=== PATIENT | male | born 1970 | race Caucasian/White ===

== ENCOUNTER 2017-01-01 11:40 | Outpatient (CLI) ==
[2017-01-01 12:39] LABS: FLU INTERNAL QC INTERNAL QC VALID; RAPID FLU A NEGATIVE (NEGATIVE); RAPID FLU B NEGATIVE (NEGATIVE)
== END 2017-01-01 11:41 | disposition home or self-care (01) ==
LOC: LAB 11:40
PROVIDERS: ATTEND Nurse Practitioner Family
DX: J02.9 Acute pharyngitis, unspecified (principal); R52 Pain, unspecified
CPT/HCPCS: 87651; 87804; 87880

== ENCOUNTER 2017-01-19 10:00 | Outpatient (RCR) ==
--- NOTE | 2017-01-15 08:36 | RS.OPPTEV2 ---
Date of Note: 01/12/17 Visit #: 1 Date of Evaluation: 01/12/17 Payer Source: Medicaid Treatment Diagnosis: Back pain History of Condition/Mechanism of Injury:: Patient reports upper back pain since approximately September. Reports no known injury. States he does a lot of lifting at work and wonders if that may be contributing to his back pain. Prior Level of Function.....Patient was independent with: ADL's, Self Care, Work /Vocation, Caregiving, Ambulation/Mobility, Community Integration/Access Functional Limitations: Sleep, ADL's Current Subjective/complaints:: Patient reports upper back pain. States he notices more back pain towards the end of his work week. 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 Reports pain varies from the left to the right side. States today he is feeling OK. After being off over the weekend he usually feels better. But by the end of the week, he starts feeling pain in his upper back again. States he has had a few occasions of tingling and muscle drawing in the left UE and right lateral thigh pain. Medical History Medical History: Hypertension Smoking Status: Current some day smoker Hx Home Medications: None Patient's Goals: His goal is to get relief of upper back pain. Pain Assessment - Pain Description Pain Location: upper back Current Pain Intensity: 0/10 Worst Pain Intensity: 7-8/10 Functional Outcome Measure - G Codes & Severity Modifier G Codes & Modifier: NA Source of G Code score: NA Observation - Observation Posture: Forward Head, Rounded Shoulders, Increased Thoracic Kyphosis Handedness: Right Gait - Gait Pattern General Gait Pattern Observation: No Deviations/Normal General Range of Motion: Cervical, thoracic, and lumbar AROM is WFL's. Bilateral UE AROM is WFL's. Muscle Strength: 5/5 throughout bilateral UE and LE's. Barrel Marker Strength Left Hand Barrel Marker Strength: 90 lbs. Right Hand Barrel Marker Strength: 105 lbs. Dynamometer Testing Position: 2nd Position Palpation Comments:: Reports no specific tenderness with palpation along the thoracic spinous processes or with palpation along the thoracic paraspinals. Demonstrates minimal to moderate increased muscle tone along the thoracic paraspinals. Sensation - Sensation Right Upper Extremity: Intact/Normal Left Upper Extremity: Intact/Normal Interventions - Exercise/Activities/Manual Therapy Exercises/Activities: Patient instructed in exercises for home: pec stretch( corner stretch), scapular retraction, resisted bilateral shoulder ER and resisted horizontal shoulder abduction with red and green theraband. Manual Therapy: NA HOME EXERCISE PROGRAM: pec stretch(corner stretch), scapular retraction, resisted bilateral shoulder ER and resisted horizontal shoulder abduction with red and green theraband. - Charges Total Direct Minutes: 45 mins Total Treatment Time: 45 mins Procedures billed for this date of service:: EVAL Low X 2, EX Assessment Assessment: Patient presents to therapy with a diagnosis of Radiculopathy, cervicothoracic region. He presents today with reports of pain in the thoracic region. Pain seems to be related to repetitive lifting and activity at work. He demonstrates no radicular symptoms during the evaluation today. His increased thoracic kyphosis makes him more at risk for thoracic pain. He will benefit from exercises to strengthen the upper back and education of body mechanics and back safety to reduce strain on the spine and prevent future injury. Patient Education: Education of diagnosis, Body/Joint mechanics, Home Exercise Program, Home Safety, Activity Modification, Education of Plan of Care Rehab Potential: Good Short Term Goals Goal #1: Patient independent in basic HEP. Goal to be met by: 01/26/17 Goal #2: Patient will demonstrate good postural awareness. Goal to be met by: 01/26/17 Shelter Goals Goal #1: Pt knows HEP and to continue ex's to maintain level of function at D/C. Goal to be met by: 02/11/17 Goal #2: Patient able to perform work activities with minimal upper back pain. Goal to be met by: 02/11/17 Plan - Treatment to be Provided Procedures: Therapeutic Exercises, Therapeutic Activity, Patient Education Modalities: No Modalities - Treatment Plan Frequency: 2 X week Duration: 4 weeks ORDER # VISITS AND/OR THROUGH DATE: 02/11/17 - Treatment Code (1) Thoracic back pain Qualifiers: Chronicity: acute Back pain laterality: bilateral Qualified Description: Acute bilateral thoracic back pain Qualifier Code(s): (M54.6 ) Pain in thoracic spine
--- NOTE | 2017-01-19 11:32 | RS.OPPTDN ---
Subjective Date of Note: 01/19/17 Visit #: 2 Date of Evaluation: 01/12/17 Payer Source: Medicaid Treatment Diagnosis: Back pain Current Subjective/complaints:: Patient reports doing well with initial HEP. Reports reduction in mid back pain but some soreness base of right scapula. Pain Assessment - Pain Description Pain Location: upper back Current Pain Intensity: 0/10 Interventions - Exercise/Activities/Manual Therapy Exercises/Activities: Reveiwed HEP and patient education of body mechanics and postural correction. Began with towel roll along thoracic spine for stretching and cervical retraction. Prone lying upper body ext with scap retraction and alt UE/LE lifts. In standing progressed wo blue theraband for scap retraction. Wall angels. Doorway stretching progressed to 3 position. Total minutes of Exercise: 40mins Manual Therapy: NA HOME EXERCISE PROGRAM: pec stretch(corner stretch), scapular retraction, resisted bilateral shoulder ER and resisted horizontal shoulder abduction with red and green theraband. Prone upper body ext and alt UE/LE lifts. Cervical retraction. Scap retraction blue theraband. wall angels. 3 position doorway stretch. - Charges Total Direct Minutes: 40mins Total Treatment Time: 45mins Procedures billed for this date of service:: EX3 Assessment: Patient respondins to postural strengthing. Patient Education: Body/Joint mechanics, Home Exercise Program, Home Safety, Activity Modification Comments: Reveiwed dx, mechancis, postural correction, and HEP. Patient given copies of new exercises. Patient demonstrates compliance with HEP?: Yes Short Term Goals Goal #1: Patient independent in basic HEP. Goal to be met by: 01/26/17 Progress towards Goal:: Met Goal #2: Patient will demonstrate good postural awareness. Goal to be met by: 01/26/17 Progress towards Goal:: Progressing Care Home Goals Goal #1: Pt knows HEP and to continue ex's to maintain level of function at D/C. Goal to be met by: 02/11/17 Progress towards goal: Progressing Goal #2: Patient able to perform work activities with minimal upper back pain. Goal to be met by: 02/11/17 Progress towards goal: Progressing Plan PLAN OF CARE EXPIRES ON:: 02/11/17 ORDER # VISITS AND/OR THROUGH DATE: 02/11/17 PLAN: Continue Plan of Care (Patient will continue HEP this week and follow-up next week for final instruction.)
== END 2017-01-20 ==
PROVIDERS: ATTEND Physician Assistant Medical
DX: M54.13 Radiculopathy, cervicothoracic region (principal)

== ENCOUNTER 2017-06-10 12:11 | Emergency (ER) ==
[2017-06-10 12:21] VITALS: BP 143/90; TEMP 97.7; BMI 28.8
--- NOTE | 2017-06-10 12:48 | ED.PDOC ---
General ED Provider: Dr. XIOMY PIERCE Chief Complaint: Non-specific Complaint Stated Complaint: 6 days ago while working (requires a lot of lifting, pushing & pulling), patient became weak. Left work and went home. Symptoms gradually resolved by that evening. [place] fine next AM. [place] ok til at work again on Wednesday nad had to stop working for a 1/2 hr or so when weakness recurred. With weakness, felt pain in right anterior chest at level of T5-T6. Resolved with rest. Recurred with working. Continued to occur through rest of week, so came to ED. Currently Asymptomatic. With weakness had no SOB, no N/V/D, no fever or chills, no diaphoresis. Time Seen by Physician: 12:42 Mode of Arrival: Walk-In Information Source: Patient Exam Limitations: No limitations Primary Care Provider: CONCHA DAY Nursing and Triage Documentation Reviewed and Agree: Yes Miscellaneous Complaint Exam - Complex/Multi-System Complaint/Exam Onset/Duration: 6 days ago Symptoms Are: Resolved Episodes Lasting: Hours Initial Severity: Severe Current Severity: None Location of Pain: right anterior chest Associated Signs and Symptoms: Reports: Weakness, Chest pain (right anterior chest) Recent Echo/LV Function: No Respiratory Distress: None JVD Present: No Tachypnea Present: No Stridor Present: No Abdominal Findings: Present: Normal findings Meningeal Signs Positive: No Focal Weakness: Present: None Focal Sensory Loss: Present: None Gait: Normal Gag Reflex Present: Yes Babinski Sign: Negative Right, Negative Left Skin Findings: Present: Normal findings Joint Swelling Present: No In-Dwelling Device Present: No Differential Diagnosis: Cardiac Ischemia, Metabolic Abnormality, Other (viral syndrome) Quality Indicator For Non-Traumatic Chest Pain/Syncope: EKG Performed Review of Systems - Review Of Systems Constitutional: Reports: Weakness Eyes: Reports: No symptoms Ears, Nose, Mouth, Throat: Reports: No symptoms Respiratory: Reports: No symptoms Cardiac: Reports: Chest pain (right anterior chest) GI: Reports: No symptoms : Reports: No symptoms Musculoskeletal: Reports: No symptoms Skin: Reports: No symptoms Neurological: Reports: No symptoms All Other Systems: Reviewed and Negative Past Medical History - Past Medical History Previously Healthy: Yes Endocrine: Reports: Dyslipidemia Cardiovascular: Reports: Hypertension Respiratory: Reports: None Hematological: Reports: None Gastrointestinal: Reports: None Genitourinary: Reports: None Neuro/Psych: Reports: None Musculoskeletal: Reports: None Cancer: Reports: None - Surgical History General Surgical History: Reports: None - Family History Family History: Reports: Unknown - Social History Smoking Status: Former smoker Hx Substance Use: No Alcohol Screening: Occasionally Lives: Alone - Immunizations Tetanus Shot up to Date: No Influenza Vaccine within 12 Months: No Pneumococcal Vaccine up to Date: No Physical Exam - Physical Exam Appearance: Well-appearing, No pain distress, Well-nourished Ill-appearing: None Pain Distress: None Eyes: ABNER, EOMI, Conjunctiva clear ENT: Ears normal, Nose normal, Oropharynx normal Neck: Supple Respiratory: Airway patent, Breath sounds clear, Breath sounds equal, Respirations nonlabored Cardiovascular: RRR, Pulses normal, No rub, No murmur GI/: Soft, Nontender, No masses, Bowel sounds normal, No Organomegaly Musculoskeletal: Normal strength, ROM intact, No edema, No calf tenderness Skin: Warm, Dry, Normal color Neurological: Sensation intact, Motor intact, Reflexes intact, Cranial nerves intact, Alert, Oriented Psychiatric: Affect appropriate, Mood appropriate Interpretation - Radiology Interpretation Radiology Interpretation By: Radiologist Radiology Results: No acute changes Exam Interpreted: CXR - EKG Interpretation Time of EKG #1: 14:16 Rate: Normal Rhythm: Sinus Ectopy: None [place]: NL ST Segment: Normal Interpretation: WNL Critical Care Note - Critical Care Note Total Time (mins): 0 Course - Course Hematology/Chemistry: 06/10/17 13:00 06/10/17 13:00 Orders, Labs, Meds: Lab Review 06/10/17 06/10/17 06/10/17 13:00 13:00 13:00 WBC 5.44 RBC 4.65 L Hgb 14.0 Hct 39.7 L MCV 85.4 MCH 30.1 MCHC 35.3 RDW Coeff of Breann 12.0 Plt Count 348 Immature Gran % (Auto) 0.4 Neut % (Auto) 48.8 Lymph % (Auto) 40.3 [place] % (Auto) 8.3 Eos % (Auto) 1.1 Baso % (Auto) 1.1 Immature Gran # (Auto) 0.0 Neut # 2.7 Lymph # 2.2 [place] # 0.5 Eos # 0.1 Baso # 0.1 Sodium 136 Potassium 3.4 L Chloride 99 Carbon Dioxide 26 Anion Gap 14.4 BUN 15 Creatinine 0.90 Estimated GFR (MDRD) 91.00 BUN/Creatinine Ratio 16.66 Glucose 95 Calcium 9.5 Total Bilirubin 0.44 AST 29 ALT 28 Alkaline Phosphatase 70 Total Creatine Kinase 276 CK-MB (CK-2) 2.3 CK-MB (CK-2) % 0.44272 Troponin I < 0.0100 Total Protein 7.2 Albumin 3.9 Globulin 3.3 Albumin/Globulin Ratio 1.18 Urine Color Urine Clarity Urine pH Ur Specific [place] Urine Protein Urine Glucose (UA) Urine Ketones Urine Blood Urine Nitrite Urine Bilirubin Urine Urobilinogen Ur Leukocyte Esterase 06/10/17 13:00 WBC RBC Hgb Hct MCV MCH MCHC RDW Coeff of [place] Plt Count Immature Gran % (Auto) Neut % (Auto) Lymph % (Auto) [place] % (Auto) Eos % (Auto) Baso % (Auto) Immature Gran # (Auto) Neut # Lymph # [place] # Eos # Baso # Sodium Potassium Chloride Carbon Dioxide Anion Gap BUN Creatinine Estimated GFR (MDRD) BUN/Creatinine Ratio Glucose Calcium Total Bilirubin AST ALT Alkaline Phosphatase Total Creatine Kinase CK-MB (CK-2) CK-MB (CK-2) % Troponin I Total Protein Albumin Globulin Albumin/Globulin Ratio Urine Color Yellow Urine Clarity Clear Urine pH 5.5 Ur Specific [place] <=1.005 Urine Protein Negative Urine Glucose (UA) Negative Urine Ketones Negative Urine Blood Negative Urine Nitrite Negative Urine Bilirubin Negative Urine Urobilinogen 0.2 Ur Leukocyte Esterase Negative Orders Category Date Time Status EKG-(ED ONLY) Stat CARDIO 06/10/17 12:57 Ordered CBC W/ AUTO DIFF Stat LAB 06/10/17 13:00 Completed CK [CREATINE KINASE] Stat LAB 06/10/17 13:00 Completed COMPREHENSIVE METABOLIC PANEL Stat LAB 06/10/17 13:00 Completed TROPONIN I Stat LAB 06/10/17 13:00 Completed URINALYSIS C & S IF INDICATED Stat LAB 06/10/17 13:00 Completed CHEST, 2 VIEWS PA & LAT Stat RADS 06/10/17 12:57 Ordered Vital Signs: Temp Pulse Resp BP Pulse Ox 06/10/17 12:13 97.7 F 95 H 20 143/90 H 97 Departure - Departure Time of Disposition: 14:30 Disposition: HOME SELF-CARE Discharge Problem: Weakness Instructions: Weakness (ED) Condition: Good Pt referred to PMD for follow-up: No (See doctor if no better in 3 days) Allergies/Adverse Reactions: Allergies phenobarbital Allergy (Severe, Verified 06/10/17 12:22) Violent Home Medications: Ambulatory Orders Atorvastatin Calcium 10 mg PO d 01/01/17 Hydrochlorothiazide 25 mg PO d 01/01/17 Lisinopril 10 mg PO d 01/01/17 Disposition Discussed With: Patient
[2017-06-10 13:14] LABS: BASOPHILS # (AUTO) 0.1 K/uL (0-0.2); BASOPHILS % (AUTO) 1.1 % (0.0-3.0); EOSINOPHILS # (AUTO) 0.1 K/ul (0.0-0.7); EOSINOPHILS % (AUTO) 1.1 % (0.0-7.0); HEMATOCRIT 39.7 % (42.0-52.0); IMMATURE GRANULOCYTE % (AUTO) 0.4 % (0.0-5.0); LYMPHOCYTES # (AUTO) 2.2 K/uL (0.60-3.4); LYMPHOCYTES % (AUTO) 40.3 (10.0-50.0); MEAN CORPUSCULAR HEMOGLOBIN 30.1 pg (27.0-31.0); MEAN CORPUSCULAR HGB CONC 35.3 (31.8-35.4); MEAN CORPUSCULAR VOLUME 85.4 fl (80.0-94.0); MONOCYTES # (AUTO) 0.5 K/uL (0.4-2.0); MONOCYTES % (AUTO) 8.3 (0-10); NEUTROPHILS # (AUTO) 2.7 K/ul (2.0-6.9); NEUTROPHILS % (AUTO) 48.8; PLATELET COUNT 348 10^3/uL (140-440); RED BLOOD COUNT 4.65 10^6/ul (4.70-6.10); WHITE BLOOD COUNT 5.44 K/ul (4.2-10.2)
[2017-06-10 13:28] LABS: BILIRUBIN,URINE Negative (NEGATIVE); KETONES,URINE Negative (NEGATIVE); LEUKOCYTE ESTERASE ,URINE Negative (NEGATIVE); NITRITE,URINE Negative (NEGATIVE); PH,URINE 5.5 (5-9); PROTEIN,URINE Negative (NEGATIVE); URINE, BLOOD Negative (NEGATIVE)
[2017-06-10 13:31] LABS: ADD URINE MICROSCOPIC NO
[2017-06-10 13:39] LABS: ALANINE AMINOTRANSFERASE 28 U/L (12-78); ALBUMIN 3.9 g/dL (3.4-5.0); ALBUMIN/GLOBULIN RATIO 1.18; ALKALINE PHOSPHATASE 70 U/L (50-136); ANION GAP 14.4; ASPARTATE AMINO TRANSFERASE 29 U/L (15-37); BILIRUBIN,TOTAL 0.44 mg/dL (0.00-1.20); BLOOD UREA NITROGEN 15 mg/dL (7-18); BUN/CREATININE RATIO 16.66; CALCIUM 9.5 mg/dL (8.2-10.2); CARBON DIOXIDE 26 mmol/L (21-32); CHLORIDE 99 mmol/L (98-107); GLUCOSE 95 mg/dL (70-100); POTASSIUM 3.4 mmol/L (3.5-5.1); SODIUM 136 mmol/L (136-145); TOTAL PROTEIN 7.2 g/dL (6.4-8.2)
[2017-06-10 13:52] LABS: CREATINE KINASE MB 2.3 ng/ml (0.0-3.6)
--- NOTE | 2017-06-10 14:10 | DI ---
EXAM: Chest two view, frontal and lateral views. HISTORY: Weakness. Right-sided chest pain. COMPARISON: None available. FINDINGS: The heart size is normal. There is no pulmonary vascular congestion. The lungs are clear . No pleural effusion or pneumothorax is seen. No acute osseous abnormality identified. IMPRESSION: No acute cardiopulmonary process.
== END 2017-06-10 14:37 | disposition home or self-care (01) ==
LOC: ED 12:11
DX: R53.1 Weakness (principal); R07.9 Chest pain, unspecified; E78.5 Hyperlipidemia, unspecified; I10 Essential (primary) hypertension
CPT/HCPCS: 36415; 80053; 81001; 82550; 82553; 84484; 85025; 93005; 93010; 99283

== ENCOUNTER 2018-02-11 17:03 | Emergency (ER) ==
[2018-02-11 17:08] VITALS: BP 128/75; TEMP 98.8; BMI 29.5
--- NOTE | 2018-02-11 17:50 | ED.PDOC ---
General ED Provider: Dr. HERMAN VASQUEZ Chief Complaint: Psychiatric Complaint Stated Complaint: insomnia/ anxiety Time Seen by Physician: 17:10 (seen with eunice RUTLEDGE at all times ) Mode of Arrival: Walk-In Information Source: Patient Exam Limitations: No limitations Primary Care Provider: CONCHA DAY Nursing and Triage Documentation Reviewed and Agree: Yes Does patient meet sepsis criteria?: Yes If yes, has appropriate treatment been initiated?: No System Inflammatory Response Syndrome: Not Applicable Sepsis Protocol: For patient's 13 years and over: Temp is 96.8 and below OR 101 and greater Pulse >90 BPM Resp >20/minute Acutely Altered Mental Status Are patient's symptoms suggestive of a new infection, such as: -Pneumonia -Skin, Soft Tissue -Endocarditis -UTI -Bone, Joint Infection -Implantable Device -Acute Abdominal Infection -Wound Infection -Meningitis -Blood Stream Catheter Infection -Unknown Psychological Complaint Exam - Psychiatric Complaint/Exam Patient Complains Of: Present: Other (lost his mom last year since mother day he has perry anxious unable to sleep) Onset/Duration: 2 weeks Symptoms Are: Still present Timing: Intermittent Episodes Lasting: Days Initial Severity: Moderate Current Severity: Mild Character: Present: Anxious Aggravating: Reports: Recent stress Associated Signs And Symptoms: Reports: Sleep disturbance. Denies: Hostile, Confused, Hallucinating, Paranoid behavior, Appetite change Related History: Reports: Recent stressors. Denies: Suicidal thoughts, Suicidal plan, Suicidal gestures, Homicidal thoughts, Homicidal plan, Homicidal gestures, Prior attempts Completed Suicide Risk Factors: None Patient Accompanied By: Family Patient In Custody Of Police: No Social Withdrawal Present: No Social Isolation Present: No Prior Suicide Attempt: No Injury From Prior Suicide Attempt: No Related Surgical History: Reports: None Patient Uncooperative For Exam: No Mood: Present: Anxious Appearance: Present: Clean Thought Process: Present: Logical Insight: Present: Good Memory: Intact Judgement: Normal Danger To Others: No Differential Diagnoses: Anxiety Review of Systems - Review Of Systems Constitutional: Reports: No symptoms Eyes: Reports: No symptoms Ears, Nose, Mouth, Throat: Reports: No symptoms Respiratory: Reports: No symptoms Cardiac: Reports: No symptoms GI: Reports: No symptoms : Reports: No symptoms Musculoskeletal: Reports: No symptoms Skin: Reports: No symptoms Neurological: Reports: No symptoms Endocrine: Reports: No symptoms Hematologic/Lymphatic: Reports: No symptoms All Other Systems: Reviewed and Negative Past Medical History - Past Medical History Previously Healthy: Yes Endocrine: Reports: Dyslipidemia Cardiovascular: Reports: Hypertension Respiratory: Reports: None Hematological: Reports: None Gastrointestinal: Reports: None Genitourinary: Reports: None Neuro/Psych: Reports: None Musculoskeletal: Reports: None Cancer: Reports: None - Surgical History General Surgical History: Reports: None - Family History Family History: Reports: Unknown - Social History Smoking Status: Former smoker Hx Substance Use: No Alcohol Screening: Occasionally - Immunizations Tetanus Shot up to Date: No Influenza Vaccine within 12 Months: No Pneumococcal Vaccine up to Date: No Physical Exam - Physical Exam Appearance: Well-appearing, No pain distress, Well-nourished Eyes: ABNER, EOMI, Conjunctiva clear ENT: Ears normal, Nose normal, Oropharynx normal Respiratory: Airway patent, Breath sounds clear, Breath sounds equal, Respirations nonlabored Cardiovascular: RRR, Pulses normal, No rub, No murmur GI/: Soft, Nontender, No masses, Bowel sounds normal, No Organomegaly Musculoskeletal: Normal strength, ROM intact, No edema, No calf tenderness Skin: Warm, Dry, Normal color Neurological: Sensation intact, Motor intact, Reflexes intact, Cranial nerves intact, Alert, Oriented Psychiatric: Affect appropriate, Mood appropriate Critical Care Note - Critical Care Note Total Time (mins): 0 Course - Course Vital Signs: Temp Pulse Resp BP Pulse Ox 02/11/18 17:04 98.8 F 113 H 18 128/75 98 Departure - Departure Time of Disposition: 18:02 Disposition: HOME SELF-CARE Discharge Problem: Anxiety Instructions: Anxiety (ED) Condition: Good Pt referred to PMD for follow-up: Yes IPMP verified?: No Additional Instructions: Please call your Family Physician as soon as possible to schedule a follow-up appointment. Allergies/Adverse Reactions: Allergies phenobarbital Allergy (Severe, Verified 02/11/18 17:08) Violent Home Medications: Ambulatory Orders Atorvastatin Calcium 10 mg PO d 01/01/17 Hydrochlorothiazide 25 mg PO d 01/01/17 Lisinopril 10 mg PO d 01/01/17
== END 2018-02-11 17:52 | disposition home or self-care (01) ==
LOC: ED 17:03
DX: F41.9 Anxiety disorder, unspecified (principal)
CPT/HCPCS: 99282

== ENCOUNTER 2018-02-13 21:06 | Emergency (ER) ==
[2018-02-13 21:17] VITALS: BP 152/94; TEMP 99; BMI 29.2
--- NOTE | 2018-02-13 21:28 | ED.PDOC ---
General ED Provider: Dr. AUGUSTO SIN-ER Chief Complaint: Non-specific Complaint Stated Complaint: lakisha got anxiety and not sleeping Time Seen by Physician: 21:25 Mode of Arrival: Walk-In Information Source: Patient Exam Limitations: No limitations Primary Care Provider: CONCHA DAY Nursing and Triage Documentation Reviewed and Agree: Yes Does patient meet sepsis criteria?: No If yes, has appropriate treatment been initiated?: No System Inflammatory Response Syndrome: Not Applicable Sepsis Protocol: For patient's 13 years and over: Temp is 96.8 and below OR 101 and greater Pulse >90 BPM Resp >20/minute Acutely Altered Mental Status Are patient's symptoms suggestive of a new infection, such as: -Pneumonia -Skin, Soft Tissue -Endocarditis -UTI -Bone, Joint Infection -Implantable Device -Acute Abdominal Infection -Wound Infection -Meningitis -Blood Stream Catheter Infection -Unknown Miscellaneous Complaint Exam - Complex/Multi-System Complaint/Exam Onset/Duration: several days Symptoms Are: Resolved Initial Severity: Mild Current Severity: Mild Location of Pain: no pain Associated Signs and Symptoms: Denies: Decreased responsiveness, Confusion, Agitation, Dizziness, Weakness, Syncope, Headache, Short of air, Cough, Wheezing , Hemoptysis, Chest pain, Palpitations, Edema, Nausea, Vomiting, Diarrhea, Abdominal pain, Back pain, Dysuria, Hematemesis, Melena, Decreased oral intake, Fever, Diaphoresis, Immunocompromised, Anticoagulation Therapy, Recent medication changes, Indwelling medical technologist generalist, Prior MRSA, Prior VRE, Recent trauma, Remote trauma Meningeal Signs Positive: No Focal Weakness: Present: None Gait: Normal Gag Reflex Present: Yes Babinski Sign: Negative Right, Negative Left Skin Findings: Present: Normal findings Joint Swelling Present: No In-Dwelling Device Present: No Review of Systems - Review Of Systems Constitutional: Reports: No symptoms Eyes: Reports: No symptoms Ears, Nose, Mouth, Throat: Reports: No symptoms Respiratory: Reports: No symptoms Cardiac: Reports: No symptoms GI: Reports: No symptoms : Reports: No symptoms Musculoskeletal: Reports: No symptoms Skin: Reports: No symptoms Neurological: Reports: Anxiety Endocrine: Reports: No symptoms Hematologic/Lymphatic: Reports: No symptoms All Other Systems: Reviewed and Negative Past Medical History - Past Medical History Previously Healthy: Yes Endocrine: Reports: Dyslipidemia Cardiovascular: Reports: Hypertension Respiratory: Reports: None Hematological: Reports: None Gastrointestinal: Reports: None Genitourinary: Reports: None Neuro/Psych: Reports: None Musculoskeletal: Reports: None Cancer: Reports: None - Surgical History General Surgical History: Reports: None - Family History Family History: Reports: Unknown - Social History Smoking Status: Former smoker Hx Substance Use: No Alcohol Screening: Occasionally - Immunizations Tetanus Shot up to Date: Yes Influenza Vaccine within 12 Months: No Pneumococcal Vaccine up to Date: No Physical Exam - Physical Exam Appearance: Well-appearing, No pain distress, Well-nourished Eyes: ABNER, EOMI, Conjunctiva clear ENT: Ears normal, Nose normal, Oropharynx normal Neck: Supple Respiratory: Airway patent, Breath sounds clear, Breath sounds equal, Respirations nonlabored Cardiovascular: RRR, Pulses normal, No rub, No murmur GI/: Soft, Nontender, No masses, Bowel sounds normal, No Organomegaly Musculoskeletal: Normal strength, ROM intact, No edema, No calf tenderness Skin: Warm, Dry, Normal color Neurological: Sensation intact, Motor intact, Reflexes intact, Cranial nerves intact, Alert, Oriented Psychiatric: Affect appropriate, Mood appropriate Critical Care Note - Critical Care Note Total Time (mins): 0 Course - Course Vital Signs: Temp Pulse Resp BP Pulse Ox 02/13/18 21:09 99 F 102 H 20 152/94 H 96 Departure - Departure Time of Disposition: 21:27 Disposition: HOME SELF-CARE Discharge Problem: Anxiety Instructions: Anxiety (ED) Condition: Good Pt referred to PMD for follow-up: Yes IPMP verified?: No Additional Instructions: xanax 0.5mg bid prn #6--f/u with pcp this week Allergies/Adverse Reactions: Allergies phenobarbital Allergy (Severe, Verified 02/13/18 21:17) Violent Home Medications: Ambulatory Orders Atorvastatin Calcium 10 mg PO d 01/01/17 Hydrochlorothiazide 25 mg PO d 01/01/17 Lisinopril 10 mg PO d 01/01/17 Alprazolam [Xanax] 0.25 mg PO BID #6 tablet 02/11/18 Disposition Discussed With: Patient, Family
== END 2018-02-13 21:30 | disposition home or self-care (01) ==
LOC: ED 21:06
DX: F41.9 Anxiety disorder, unspecified (principal)
CPT/HCPCS: 99282